=== PATIENT | female | born 1950 | race Caucasian/White ===

== ENCOUNTER 2017-11-20 07:58 | Inpatient (IN) | payer MEDICARE, MEDICAID ==
[~2017-11-20] VITALS: Ht 157.5 cm; Wt 90.9 kg
[~2017-11-20 07:58] MED LIST: ASPI-1 PO; B12 PO; BACL10TA PO; CALC-1197 PO; CLON-527 PO; DULO-31 PO; GABA600T2 PO; MULT-920 PO; PER10325T PO; SERT50TA PO; TERI2.4P SUBCUT; TRAZ-219 PO; VITAMIN B PO
[2017-11-20] MEDS ORDERED: ondansetron/PF 4mg/2ml inj IV ONE ×2 (08:05→08:40)
[2017-11-20] MEDS ORDERED: normal saline 1000ML IV soln IVB ONE ×2 (08:05→08:40)
[2017-11-20 08:21] LABS: BASOPHILS % (AUTO) 0.4 % (0-1); EOSINOPHILS # (AUTO) 0.1 X10'3 (0-0.9); EOSINOPHILS % (AUTO) 1.2 % (0-6); HEMATOCRIT 39.8 % (35.0-45.0); HEMOGLOBIN 13.7 g/dl (12.0-16.0); LYMPHOCYTES # (AUTO) 1.2 X10'3 (1.1-4.8); LYMPHOCYTES % (AUTO) 11.8 % (21-51); MEAN CORPUSCULAR HEMOGLOBIN 30.8 PG (27.0-31.0); MEAN CORPUSCULAR HGB CONC 34.5 % (33.0-36.5); MEAN CORPUSCULAR VOLUME 89.3 FL (78-98); MEAN PLATELET VOLUME 9.5 FL (7.4-10.4); MONOCYTES # (AUTO) 0.6 X10'3 (0-0.9); MONOCYTES % (AUTO) 6.1 % (2-12); NEUTROPHILS # (AUTO) 8.3 X10'3 (1.8-7.7); NEUTROPHILS % (AUTO) 80.5 % (42-75); PLATELET COUNT 141 X10'3 (140-440); RED BLOOD COUNT 4.46 X10'6 (4.20-5.60); RED CELL DISTRIBUTION WIDTH 13.5 % (11.5-14.5); WHITE BLOOD COUNT 10.3 X10'3 (4.5-11.0)
[2017-11-20 08:44] LABS: ALANINE AMINOTRANSFERASE 28 U/L (12-78); ALBUMIN 3.5 G/DL (3.4-5.0); ALBUMIN/GLOBULIN RATIO 1.1 (1.1-1.5); ALKALINE PHOSPHATASE 80 IU/L (46-116); ANION GAP 7 (8-16); ASPARTATE AMINO TRANSFERASE 22 U/L (10-37); BILIRUBIN,TOTAL 0.3 MG/DL (0.1-1.0); BLOOD UREA NITROGEN 14 MG/DL (7-18); BUN/CREATININE RATIO 12.8 (6.6-38.0); CHLORIDE 104 MMOL/L (99-107); CREATININE 1.09 MG/DL (0.40-0.90); GLUCOSE 105 MG/DL (70-104); LIPASE 94 U/L (73-393); SODIUM 139 MMOL/L (135-145); TOTAL CARBON DIOXIDE 27.8 MMOL/L (24-32); TOTAL PROTEIN 6.7 G/DL (6.4-8.2); eGFR 50 ML/MIN
[2017-11-20 08:46] LABS: CLARITY,URINE SLIGHTLY CLOUDY (Clear); COLOR,URINE YELLOW (Yellow); GLUCOSE, URINE NEGATIVE (Neg); KETONES,URINE NEGATIVE (Neg); LEUKOCYTE ESTERASE ,URINE SMALL (Neg); NITRITES, URINE NEGATIVE (Neg); OCCULT BLOOD,URINE LARGE (Neg); PROTEIN,URINE TRACE mg/dl (Neg)
[2017-11-20 08:47] LABS: UA COLLECTION TYPE OTHER
[2017-11-20 08:56] LABS: BACTERIA,URINE 1+ /HPF (Neg); MUCUS STRANDS MODERATE /LPF (Neg); RBC,URINE 50-100 /HPF (0-2); SQUAMOUS EPITHELIAL CELL,UR MODERATE /LPF (FEW)
[2017-11-20] MEDS ORDERED: FLO0.4C PO (08:56)
[2017-11-20] MEDS ORDERED: DIPH25CA6 PO (08:56)
[2017-11-20] MEDS ORDERED: CefTRIAXone 2gm/D5W 50ml 50 ML IV ONE (09:40)
[2017-11-20] MEDS ORDERED: ketorolac tromethamine 15mg/ml inj. IV PRN (11:15)
[2017-11-20] MEDS ORDERED: ondansetron/PF 4mg/2ml inj IV PRN (11:15)
[2017-11-20] MEDS ORDERED: HYDROmorphone 1 mg/ml syringe IV PRN (11:15)
[2017-11-20] MEDS ORDERED: acetaminophen 325mg tablet PO PRN (11:15)
[2017-11-20] MEDS ORDERED: magnesium hydroxide 30ml (MOM) UD suspension PO PRN (11:15)
[2017-11-20] MEDS ORDERED: mag hydrox/Alum hydrox/simeth 30ml oral suspension PO PRN (11:15)
[2017-11-20] MEDS: morphine 4 MG/ML inj SYRINge IV PRN ×2 (11:20→12:21)
[2017-11-20] MEDS: normal saline 1000ml 1,000 ML IV SCH ×3 (12:12→22:24)
[2017-11-20 15:50] VITALS: BP 107/72
[2017-11-20] MEDS: HYDROmorphone 1 mg/ml syringe IV PRN ×2 (17:55→22:24)
[2017-11-20 20:00] VITALS: BP 140/74
[2017-11-21] VITALS: BP 113/56
[2017-11-21] MEDS: HYDROmorphone 1 mg/ml syringe IV PRN ×2 (03:21→08:02)
[2017-11-21 05:24] LABS: BASOPHILS % (AUTO) 0.6 % (0-1); EOSINOPHILS # (AUTO) 0.3 X10'3 (0-0.9); EOSINOPHILS % (AUTO) 4.1 % (0-6); HEMATOCRIT 34.8 % (35.0-45.0); LYMPHOCYTES # (AUTO) 1.8 X10'3 (1.1-4.8); LYMPHOCYTES % (AUTO) 26.1 % (21-51); MEAN CORPUSCULAR HEMOGLOBIN 31.1 PG (27.0-31.0); MEAN CORPUSCULAR HGB CONC 34.4 % (33.0-36.5); MEAN CORPUSCULAR VOLUME 90.4 FL (78-98); MEAN PLATELET VOLUME 9.9 FL (7.4-10.4); MONOCYTES # (AUTO) 0.6 X10'3 (0-0.9); MONOCYTES % (AUTO) 8.1 % (2-12); NEUTROPHILS # (AUTO) 4.2 X10'3 (1.8-7.7); NEUTROPHILS % (AUTO) 61.1 % (42-75); PLATELET COUNT 120 X10'3 (140-440); RED BLOOD COUNT 3.85 X10'6 (4.20-5.60); RED CELL DISTRIBUTION WIDTH 13.4 % (11.5-14.5); WHITE BLOOD COUNT 6.9 X10'3 (4.5-11.0)
[2017-11-21 05:52] LABS: ALBUMIN 3.3 G/DL (3.4-5.0); ANION GAP 10 (8-16); BLOOD UREA NITROGEN 13 MG/DL (7-18); CALCIUM 8.5 MG/DL (8.5-10.1); CHLORIDE 105 MMOL/L (99-107); CREATININE 0.81 MG/DL (0.40-0.90); GLUCOSE 90 MG/DL (70-104); POTASSIUM 3.8 MMOL/L (3.5-5.1); SODIUM 140 MMOL/L (135-145); TOTAL CARBON DIOXIDE 25.5 MMOL/L (24-32); eGFR 71 ML/MIN
[2017-11-21 07:17] VITALS: BP 137/63
[2017-11-21] MEDS ORDERED: cefTRIAXone 1g/NS 100ml IVPB 100 ML IV SCH (08:00)
[2017-11-21] MEDS: normal saline 1000ml 1,000 ML IV SCH (08:02)
[2017-11-21 08:17] VITALS: BP 137/63
[2017-11-21 11:30] VITALS: BP 118/70
[2017-11-21] MEDS ORDERED: gabapentin 300mg capsule PO SCH (13:00)
== END 2017-11-21 12:10 | disposition left against medical advice (07) | DRG 690 ==
LOC: ER 07:58 → ED HOLD 11:12 → SUR 3N 15:00
PROVIDERS: ADMIT Family Medicine; ATTEND Family Medicine
DX: N13.6 Pyonephrosis (principal); G62.9 Polyneuropathy, unspecified; G89.29 Other chronic pain; Z53.21 Procedure and treatment not carried out due to patient leaving prior to being seen by health care provider; Z59.0 Homelessness; Z90.11 Acquired absence of right breast and nipple; Z90.710 Acquired absence of both cervix and uterus; Z79.899 Other long term (current) drug therapy; Z88.6 Allergy status to analgesic agent; Z88.8 Allergy status to other drugs, medicaments and biological substances; Z88.1 Allergy status to other antibiotic agents; Z85.3 Personal history of malignant neoplasm of breast; Z87.442 Personal history of urinary calculi; Z87.891 Personal history of nicotine dependence
CPT/HCPCS: 36415; 71045; 74176; 80048; 80053; 81001; 83690; 85025; 87070; 87088; 93005; J0696; J1170; J1885; J2270; J2405; J7030

== ENCOUNTER 2018-05-26 14:53 | Emergency (ER) | payer MEDICARE, MEDICAID ==
[~2018-05-26] VITALS: Ht 157.5 cm; Wt 77.3 kg
[~2018-05-26 14:53] MED LIST changes: -ASPI-1 PO; -BACL10TA PO; -CALC-1197 PO; -CLON-527 PO; +DIPH25CA6 PO; -DULO-31 PO; +FLO0.4C PO; +GABA600T13 PO; -GABA600T2 PO; -PER10325T PO; -SERT50TA PO; -TERI2.4P SUBCUT
[2018-05-26] MEDS ORDERED: acetaminophen 325mg tablet PO ONE (17:15)
[2018-05-26] MEDS ORDERED: LORazepam 1 MG tablet PO ONE (17:15)
[2018-05-26 17:34] LABS: BASOPHILS % (AUTO) 0.5 % (0-1); EOSINOPHILS # (AUTO) 0.1 X10'3 (0-0.9); EOSINOPHILS % (AUTO) 1.5 % (0-6); HEMATOCRIT 41.8 % (35.0-45.0); HEMOGLOBIN 14.2 g/dl (12.0-16.0); LYMPHOCYTES # (AUTO) 1.4 X10'3 (1.1-4.8); LYMPHOCYTES % (AUTO) 19.3 % (21-51); MEAN CORPUSCULAR HEMOGLOBIN 30.9 PG (27.0-31.0); MEAN CORPUSCULAR VOLUME 90.9 FL (78-98); MEAN PLATELET VOLUME 9.1 FL (7.4-10.4); MONOCYTES # (AUTO) 0.5 X10'3 (0-0.9); MONOCYTES % (AUTO) 6.3 % (2-12); NEUTROPHILS # (AUTO) 5.4 X10'3 (1.8-7.7); NEUTROPHILS % (AUTO) 72.4 % (42-75); PLATELET COUNT 172 X10'3 (140-440); RED CELL DISTRIBUTION WIDTH 13.3 % (11.5-14.5); WHITE BLOOD COUNT 7.5 X10'3 (4.5-11.0)
[2018-05-26 17:47] LABS: COLOR,URINE YELLOW (Yellow); GLUCOSE, URINE NEGATIVE (Neg); KETONES,URINE NEGATIVE (Neg); LEUKOCYTE ESTERASE ,URINE SMALL (Neg); NITRITES, URINE NEGATIVE (Neg); OCCULT BLOOD,URINE MODERATE (Neg); PROTEIN,URINE NEGATIVE (Neg); UROBILINOGEN,URINE 0.2 E.U/dL (0.2-1.0)
[2018-05-26 17:51] LABS: ALANINE AMINOTRANSFERASE 22 U/L (12-78); ALBUMIN 3.9 G/DL (3.4-5.0); ALBUMIN/GLOBULIN RATIO 1.2 (1.1-1.5); ALKALINE PHOSPHATASE 101 IU/L (46-116); ANION GAP 11 (8-16); ASPARTATE AMINO TRANSFERASE 20 U/L (10-37); BILIRUBIN,TOTAL 0.5 MG/DL (0.1-1.0); BLOOD UREA NITROGEN 15 MG/DL (7-18); BUN/CREATININE RATIO 21.7 (6.6-38.0); CALCIUM 9.2 MG/DL (8.5-10.1); CHLORIDE 105 MMOL/L (99-107); CREATININE 0.69 MG/DL (0.40-0.90); GLUCOSE 91 MG/DL (70-104); SODIUM 142 MMOL/L (135-145); TOTAL CARBON DIOXIDE 26.2 MMOL/L (24-32); TOTAL PROTEIN 7.2 G/DL (6.4-8.2); eGFR 85 ML/MIN
[2018-05-26 17:51] LABS: CLARITY,URINE Slightly Cloudy (Clear); UA COLLECTION TYPE CLN CATCH MIDSTREAM
[2018-05-26 17:57] LABS: URINE AMPHETAMINE SCREEN NEGATIVE (Neg); URINE BARBITUATE SCREEN NEGATIVE (Neg); URINE BENZODIAZEPINES SCREEN NEGATIVE (Neg); URINE CANNABINOID SCREEN NEGATIVE (Neg); URINE COCAINE SCREEN NEGATIVE (Neg); URINE METHADONE SCREEN NEGATIVE (Neg); URINE OPIATE SCREEN NEGATIVE (Neg); URINE PHENCYCLIDINE SCREEN NEGATIVE (Neg)
[2018-05-26 17:58] LABS: ETHANOL < 0.010 GM/DL (0.0-0.010)
[2018-05-26 17:59] LABS: BACTERIA,URINE FEW /HPF (Neg); RBC,URINE 0-2 /HPF (0-2); SQUAMOUS EPITHELIAL CELL,UR FEW /LPF (FEW)
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
[2018-05-26] MEDS ORDERED: sulfamethoxazole/trimethoprim DS (800/160mg) tablet PO ONE (18:45)
[2018-05-26] MEDS ORDERED: sulfamethoxazole/trimethoprim DS (800/160mg) tablet PO SCH (18:45)
--- NOTE | 2018-05-26 18:56 | NUR ---
CONTACTED [facility]LE[facility]YCH TO INITIATE CONSULT.
--- NOTE | 2018-05-26 20:55 | NUR ---
TELEPSYCH DR RECOMMENDED THAT PT BE PLACED ON A HOLD, WILL FAX REPORT THROUGH.
--- NOTE | 2018-05-27 01:46 | NUR ---
PT LYING ON BACK WITH BLANKETS PULLED TO WAIST. EVEN, UNLABORED BREATHS. NO DISTRESS NOTED. WILL CONTINUE TO MONITOR PT.
--- NOTE | 2018-05-27 04:53 | NUR ---
PT LYING ON LEFT SIDE WITH BLANKETS PULLED TO SHOULDERS. EVEN, UNLABORED BREATHS. NO DISTRESS NOTED. WILL CONTINUE TO MONITOR.
[2018-05-27] MEDS ORDERED: HYDROcodone/acetaminophen 5mg/325mg tablet PO ONE (07:55)
--- NOTE | 2018-05-27 22:51 | NUR ---
pt resting, crying in her bed at this time, no new c/o, states continuing sadness over current situation
--- NOTE | 2018-05-28 01:12 | NUR ---
pt sleeping, no c/o
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
--- NOTE | 2018-05-28 09:24 | NUR ---
TELEPHONE CALL TO [id number] FOR COPY OF FAXED TELEPSYCH REPORT.
--- NOTE | 2018-05-28 14:00 | NUR ---
REPORT CALLED TO [facility] ON ER OVERFLOW UNIT. PATIENT PREPARED FOR TRANSFER TO OVERFLOW.
--- NOTE | 2018-05-28 14:10 | NUR ---
Pt walked over from ER main accompanied by tech and security, oriented to bed 27.
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
[2018-05-28] MEDS: sulfamethoxazole/trimethoprim DS (800/160mg) tablet PO SCH ×2 (15:02→20:44)
--- NOTE | 2018-05-28 16:00 | NUR ---
Provided pt with a warm blanket.
--- NOTE | 2018-05-28 17:38 | NUR ---
Pt lying in bed with eyes shut, appears to be sleeping.
--- NOTE | 2018-05-28 19:10 | NUR ---
Assumed care, patient resting in bed eating her dinner.
[2018-05-28] MEDS: gabapentin 300mg capsule PO SCH (20:44)
[2018-05-28] MEDS: diphenhydrAMINE 25mg capsule PO SCH (20:44)
[2018-05-28] MEDS: traZODone 150mg tablet PO SCH (20:46)
[2018-05-28] MEDS: tamsulosin 0.4mg capsule PO SCH (20:46)
--- NOTE | 2018-05-28 21:08 | NUR ---
Patient took HS medications without issue. She is currently laying in bed mumbling to herself about her daughter purposefully putting bedbugs somewhere. Patient encouraged to eat her dinner plate but she refused saying she was not hungry.
--- NOTE | 2018-05-28 23:00 | NUR ---
Patient lays in bed and mumbles to herself. She engages in conversation with television script writer but also keeps talking to herself. The phone rings on the unit and she is convinced that it is her grandchildren calling to "make me crazy." "They know what they are doing." She mumbles about her son and daughter and keeps stating that they are out to make her crazy. The phone rings again and she says, "See they keep doing it, they know what they are doing." She is tearful at times and appears paranoid, looking around and convincing herself. She states that she wants to . "I just want to get hit by a bus, I just want to ." She is cooperative with the physical assessment and denies any pain. She is medication compliant with her HS meds.
--- NOTE | 2018-05-29 01:00 | NUR ---
Patient is currently alseep in bed. No signs or symptoms of distress.
--- NOTE | 2018-05-29 03:00 | NUR ---
Patient is asleep in bed. No signs or symptoms of distress.
--- NOTE | 2018-05-29 05:00 | NUR ---
Patient is asleep in bed. No signs or symptoms of distress.
[2018-05-29] MEDS: multivitamins, therapeutics tablet PO SCH (08:31)
[2018-05-29] MEDS: gabapentin 300mg capsule PO SCH ×3 (08:31→20:36)
[2018-05-29] MEDS: cyanocobalamin 500mcg tablet PO SCH (08:31)
[2018-05-29] MEDS: sulfamethoxazole/trimethoprim DS (800/160mg) tablet PO SCH ×2 (08:31→20:37)
--- NOTE | 2018-05-29 14:45 | NUR ---
Gave report to Coby from [facility] for possible placement
--- NOTE | 2018-05-29 16:10 | NUR ---
Repoprt given to Laly from [facility] for possible placement
[2018-05-29] MEDS ORDERED: CLON0.5T12 PO (18:59)
[2018-05-29] MEDS ORDERED: DULO60CA64 PO (18:59)
[2018-05-29] MEDS ORDERED: PRAZ1CAP5 PO (18:59)
[2018-05-29] MEDS: tamsulosin 0.4mg capsule PO SCH (20:36)
[2018-05-29] MEDS: diphenhydrAMINE 25mg capsule PO SCH (20:37)
[2018-05-29] MEDS: lactobacillus rhamnosus 10,000 MMU CELLS/CAPSULE PO SCH (20:37)
[2018-05-29] MEDS: traZODone 150mg tablet PO SCH (20:37)
[2018-05-29] MEDS: prazosin 1mg capsule PO SCH (20:41)
--- NOTE | 2018-05-30 07:00 | NUR ---
Pt is resting quietly in bed at this time. No signs of distress noted.
[2018-05-30] MEDS: multivitamins, therapeutics tablet PO SCH (07:59)
[2018-05-30] MEDS: cyanocobalamin 500mcg tablet PO SCH (07:59)
[2018-05-30] MEDS: sulfamethoxazole/trimethoprim DS (800/160mg) tablet PO SCH ×2 (07:59→21:09)
[2018-05-30] MEDS: lactobacillus rhamnosus 10,000 MMU CELLS/CAPSULE PO SCH ×2 (07:59→21:09)
[2018-05-30] MEDS: gabapentin 300mg capsule PO SCH ×3 (08:00→21:08)
[2018-05-30] MEDS: duloxetine 30mg CAPSULE.DR PO SCH (08:00)
--- NOTE | 2018-05-30 09:08 | NUR ---
Pt resting quietly in bed, on her back. Resp. even and unlabored. No signs of distress at this time.
--- NOTE | 2018-05-30 11:22 | NUR ---
Pt. in bed, resting quietly, laying on her left side. Resp are even and unlabored. Pt does not appear to be in any distress at this time.
[2018-05-30] MEDS ORDERED: HYDROcodone/acetaminophen 5mg/325mg tablet PO ONE (12:30)
--- NOTE | 2018-05-30 13:15 | NUR ---
Pt stated she had a migraine. notified and new orders obtained. Pt given [place] as ordered. Pt stated she was not very hungry and ate only a small part of her meal. Pt did say that the [place] did improve her head pain. She also expressed that earlier she thought she heard her son's voice saying "mom" and got up to see if he was here. Her son lives in [place]. She was upset that she was hearing voices.
[2018-05-30] MEDS: clonazePAM 1mg tablet PO PRN (16:22)
--- NOTE | 2018-05-30 16:30 | NUR ---
Per [facility], pt has some increased anxiety. Pt given meds as ordered. She is laying in bed and states that she feels like she can't relax. Will cont. to monitor.
--- NOTE | 2018-05-30 17:58 | NUR ---
Pt handed staff some notes with her children's phone numbers on them. Asked pt if she would like to call them but stated she wanted staff to call. [employer] Sequestration [employer] Operator attempted to contact her son Joey but there was not answer.
--- NOTE | 2018-05-30 19:02 | NUR ---
Patient sitting in bed and eating dinner. Patient appears disorganized moving around her food items and other items on her bedside table. Patient states she is depressed and feels hopeless. Patient at times was saying things that didn't make sense. Patient said in a round about way that she has no family who cares and nothing to lived for.
[2018-05-30] MEDS: traZODone 150mg tablet PO SCH (21:08)
[2018-05-30] MEDS: tamsulosin 0.4mg capsule PO SCH (21:08)
[2018-05-30] MEDS: prazosin 1mg capsule PO SCH (21:08)
[2018-05-30] MEDS: diphenhydrAMINE 25mg capsule PO SCH (21:09)
--- NOTE | 2018-05-30 21:16 | NUR ---
Patient awake and laying supine in bed. No distress observed. Continue to monitor.
--- NOTE | 2018-05-30 23:46 | NUR ---
Patient sleeping supine. No distress observed. Continue to monitor.
--- NOTE | 2018-05-31 05:38 | NUR ---
Pt has been sleeping quietly since 0200, but for one trip to the restroom approx 0430.
--- NOTE | 2018-05-31 06:33 | NUR ---
Appears to be sleeping; RR WNL's
[2018-05-31] MEDS: duloxetine 30mg CAPSULE.DR PO SCH (08:07)
[2018-05-31] MEDS: multivitamins, therapeutics tablet PO SCH (08:07)
[2018-05-31] MEDS: cyanocobalamin 500mcg tablet PO SCH (08:07)
[2018-05-31] MEDS: lactobacillus rhamnosus 10,000 MMU CELLS/CAPSULE PO SCH ×2 (08:07→20:30)
[2018-05-31] MEDS: gabapentin 300mg capsule PO SCH ×3 (08:07→20:31)
[2018-05-31] MEDS: sulfamethoxazole/trimethoprim DS (800/160mg) tablet PO SCH ×2 (08:07→20:31)
[2018-05-31] MEDS: clonazePAM 1mg tablet PO PRN (08:07)
--- NOTE | 2018-05-31 08:20 | NUR ---
Pt up for breakfast ate her meal took her medications and went back to sleep. Pt complains of some pain in her back; meds offered and suggest change of position.
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
--- NOTE | 2018-05-31 12:00 | NUR ---
Pt sitting on her bed waiting for lunch. Pt talked about her son and now being homeless. She engages in conversation well. Appears depressed and has been crying on and off.
--- NOTE | 2018-05-31 14:21 | NUR ---
Pt transferred to bed #20 she is laying on her side with her eyes closed. RR WNL's.
--- NOTE | 2018-05-31 15:01 | NUR ---
[facility] REPORT The written report was faxed to [phone]. Verbal report given to Luiza. Per Luiza, "no case number until the case is assigned."
--- NOTE | 2018-05-31 15:24 | NUR ---
Sleeping right side normal RR even and unlabored.
--- NOTE | 2018-05-31 17:22 | NUR ---
Pt has been sleeping on her bed she is now awake and waiting quietly on her bed for dinner.
[2018-05-31] MEDS: diphenhydrAMINE 25mg capsule PO SCH (20:30)
[2018-05-31] MEDS: prazosin 1mg capsule PO SCH (20:30)
[2018-05-31] MEDS: tamsulosin 0.4mg capsule PO SCH (20:31)
[2018-05-31] MEDS: traZODone 150mg tablet PO SCH (20:31)
[2018-06-01] MEDS ORDERED: acetaminophen 325mg tablet PO ONE (03:40)
[2018-06-01] MEDS: sulfamethoxazole/trimethoprim DS (800/160mg) tablet PO SCH ×2 (07:24→21:09)
[2018-06-01] MEDS: duloxetine 30mg CAPSULE.DR PO SCH (07:25)
[2018-06-01] MEDS: gabapentin 300mg capsule PO SCH ×3 (07:25→21:11)
[2018-06-01] MEDS: lactobacillus rhamnosus 10,000 MMU CELLS/CAPSULE PO SCH ×2 (07:25→21:09)
[2018-06-01] MEDS: multivitamins, therapeutics tablet PO SCH (07:25)
[2018-06-01] MEDS: cyanocobalamin 500mcg tablet PO SCH (07:25)
[2018-06-01] MEDS: clonazePAM 1mg tablet PO PRN (13:23)
--- NOTE | 2018-06-01 17:15 | NUR ---
pt is in bed supine, breathing equal and unlabored, she appears to be asleep. no s/s of distress observed
[2018-06-01] MEDS: diphenhydrAMINE 25mg capsule PO SCH (21:09)
[2018-06-01] MEDS: traZODone 150mg tablet PO SCH (21:10)
[2018-06-01] MEDS: prazosin 1mg capsule PO SCH (21:13)
--- NOTE | 2018-06-02 00:45 | NUR ---
pt resting comfortably on her back. no signs of distress noted. will continue to monitor.
[2018-06-02] MEDS: lactobacillus rhamnosus 10,000 MMU CELLS/CAPSULE PO SCH ×2 (07:45→20:48)
[2018-06-02] MEDS: cyanocobalamin 500mcg tablet PO SCH (07:45)
[2018-06-02] MEDS: multivitamins, therapeutics tablet PO SCH (07:45)
[2018-06-02] MEDS: sulfamethoxazole/trimethoprim DS (800/160mg) tablet PO SCH ×2 (07:45→20:47)
[2018-06-02] MEDS: duloxetine 30mg CAPSULE.DR PO SCH (07:45)
[2018-06-02] MEDS: gabapentin 300mg capsule PO SCH ×3 (07:46→20:48)
[2018-06-02] MEDS: clonazePAM 1mg tablet PO PRN (11:42)
--- NOTE | 2018-06-02 13:20 | NUR ---
Pt seen by [facility] worker Bhavani. Pt remains on a hold
--- NOTE | 2018-06-02 13:48 | NUR ---
Dr. Pinto at bedside talking with pt.
--- NOTE | 2018-06-02 14:33 | NUR ---
Anneliese spoke to Ho from [facility] and he is aware pt is here and has been looking for housing for pt for 2 weeks now. He will continue looking for housing options. Dr Pinto interested in working with [facility] for housing and is updated on this information.
--- NOTE | 2018-06-02 20:30 | NUR ---
PATIENT WITH A FLAT AFFECT, APPEARS WITHDRAWN AND FEARFUL. DENIES SI AND HI AT HIS TIME
[2018-06-02] MEDS: diphenhydrAMINE 25mg capsule PO SCH (20:48)
[2018-06-02] MEDS: traZODone 150mg tablet PO SCH (20:48)
[2018-06-02 20:58] VITALS: BP 94/58
[2018-06-02] MEDS: prazosin 1mg capsule PO SCH (21:00)
--- NOTE | 2018-06-02 22:19 | NUR ---
PATIENT TO BEHAVIORAL HEALTH VIA WC WITH TECH FROM BEHAVIORAL HEALTH. REPORT CALLED TO CHERELLE SHAIKH
[2018-06-10] MEDS ORDERED: GABA600T13 PO (12:29)
[2018-06-10] MEDS ORDERED: DULO30CA51 PO (12:29)
[2018-06-10] MEDS ORDERED: FLO0.4C PO (12:29)
[2018-06-10] MEDS ORDERED: TRAZ-219 PO (12:29)
[2018-06-10] MEDS ORDERED: PRAZ1CAP5 PO (12:29)
== END 2018-06-02 22:30 ==
LOC: EEVIPCON 14:53 → ER 14:53
DX: R45.851 Suicidal ideations (principal); F32.9 Major depressive disorder, single episode, unspecified; N39.0 Urinary tract infection, site not specified; R51 Headache; G89.29 Other chronic pain; Z59.0 Homelessness; Z88.8 Allergy status to other drugs, medicaments and biological substances; Z88.1 Allergy status to other antibiotic agents; Z88.6 Allergy status to analgesic agent; Z79.899 Other long term (current) drug therapy; Z87.440 Personal history of urinary (tract) infections
CPT/HCPCS: 36415; 80053; 80305; 80320; 81001; 84443; 85025; 99285; Q0163

== ENCOUNTER 2018-06-02 20:25 | Inpatient (IN) | payer MEDICARE, MEDICAID | END 2018-06-09 13:50 | disposition short-term general hospital (02) | LOC: ED HOLD 20:25 → ADULT MH 21:58 | DX: R45.851 Suicidal ideations (principal); F32.3 Major depressive disorder, single episode, severe with psychotic features; F43.10 Post-traumatic stress disorder, unspecified; F17.210 Nicotine dependence, cigarettes, uncomplicated ==

== ENCOUNTER 2018-06-09 14:10 | Day surgery (SDC) | payer MEDICARE, MEDICAID ==
[~2018-06-09 14:10] MED LIST changes: +CLON0.5T12 PO; +DULO60CA64 PO; +PRAZ1CAP5 PO; +iohexol 300 MG/1 ML 50ml polymer ONE; +meperidine/PF 25mg/ml syringe IV PRN; +morphine 4 MG/ML inj SYRINge IV PRN; +ondansetron/PF 4mg/2ml inj IV PRN; +proCHLORperazine 10 MG/2 ml inj IV PRN; +ringers solution, lacted 1,000 ML IV SCH
[2018-06-09] MEDS ORDERED: sevoflurane 250ml liquid IH ONE (14:15)
[2018-06-09] MEDS ORDERED: midazolam 2 mg/2 ml injection ONE (14:23)
[2018-06-09] MEDS ORDERED: fentaNYL/PF 50MCG/1 ML 2ML syringe ONE (14:23)
[2018-06-09] MEDS ORDERED: propofol inj 20 ML IV ONE (14:31)
[2018-06-09] MEDS ORDERED: LIDOcaine 1%/PF 5ML 10 MG/ML VIAL ONE (14:31)
[2018-06-09 15:05] VITALS: BP 139/72
--- NOTE | 2018-06-09 15:05 | NUR ---
Received from OR via bed, accompanied by Anesthesiologist. Report received. Initial physical assessment done and recorded.
[2018-06-09 15:15] VITALS: BP 135/89
--- NOTE | 2018-06-09 15:20 | NUR ---
SPOKE WITH DR WALKER BRYSON TO TRANSFER BACK TO BEHAVIORAL HEALTH.
[2018-06-09 15:25] VITALS: BP 134/88
--- NOTE | 2018-06-09 15:29 | NUR ---
PT TO BE DISCHARGED TO BEHAVIORAL HEALTH, DR THORPE AWARE THAT PT IS NOT GOING TO MEDICAL, AND IS RETURNING TO BEHAVIORAL HEALTH.
--- NOTE | 2018-06-09 15:30 | NUR ---
Discharge criteria met, report to receiving floor. Transferred to room in stable condition.
[2018-06-10] MEDS ORDERED: FLO0.4C PO (12:29)
[2018-06-10] MEDS ORDERED: DULO30CA51 PO (12:29)
[2018-06-10] MEDS ORDERED: TRAZ-219 PO (12:29)
[2018-06-10] MEDS ORDERED: PRAZ1CAP5 PO (12:29)
[2018-06-10] MEDS ORDERED: GABA600T13 PO (12:29)
== END 2018-06-09 15:30 | disposition short-term general hospital (02) ==
LOC: PAS 14:10
PROVIDERS: ATTEND Urology
DX: N20.0 Calculus of kidney (principal); Z88.8 Allergy status to other drugs, medicaments and biological substances; E66.9 Obesity, unspecified; F43.10 Post-traumatic stress disorder, unspecified; Z79.899 Other long term (current) drug therapy
CPT/HCPCS: 52332; 76000; C2617; J2001; J2250; J2704; J3010; J7030; Q9967; A4402; C1758; C1769; J7120

== ENCOUNTER 2018-06-09 16:20 | Inpatient (IN) | payer MEDICARE, MEDICAID | END 2018-06-10 14:02 | disposition still patient (30) | LOC: ADULT MH 16:20 | DX: R45.851 Suicidal ideations (principal); F32.3 Major depressive disorder, single episode, severe with psychotic features; F43.10 Post-traumatic stress disorder, unspecified ==

== ENCOUNTER 2018-11-19 07:30 | Inpatient (IN) | payer MEDICARE, MEDICAID ==
[2018-11-19] VITALS (20 sets, daily range): BP systolic 99–165; BP diastolic 53–102
[~2018-11-19] VITALS: Ht 160 cm; Wt 87.0 kg
[~2018-11-19 07:30] MED LIST changes: +ACET-2119 PO; -B12 PO; +BISA10SU60 RC; +CLON-527 PO; -CLON0.5T12 PO; -DIPH25CA6 PO; +DULO-31 PO; -DULO60CA64 PO; -FLO0.4C PO; +HYDR-4353 PO; +MAGN400C PO; +MAGN400O6 PO; +MORP20CA20 PO; -MULT-920 PO; +NA P133E4 RC; +NAPR-1154 PO; -PRAZ1CAP5 PO; +PRAZ5CAP PO; +SENN-162 PO; -TRAZ-219 PO; +TRAZ-251 PO; +VITA1TAB20 PO; -VITAMIN B PO; -iohexol 300 MG/1 ML 50ml polymer ONE; -meperidine/PF 25mg/ml syringe IV PRN; -morphine 4 MG/ML inj SYRINge IV PRN; -ondansetron/PF 4mg/2ml inj IV PRN; -proCHLORperazine 10 MG/2 ml inj IV PRN; -ringers solution, lacted 1,000 ML IV SCH
[2018-11-19] MEDS ORDERED: famotidine 20mg tablet PO ONE (09:45)
[2018-11-19] MEDS ORDERED: VANCOMYCIN INJ 1000 MG in NORMAL SALINE 250ml IV.SOLN IV ONE (09:45)
[2018-11-19] MEDS ORDERED: ringers solution, lacted 1,000 ML IV SCH ×2 (09:45→11:44)
[2018-11-19] MEDS ORDERED: cefazolin/dext.iso 2gm/100 ML IV ONE (09:45)
[2018-11-19] MEDS ORDERED: tranexamic acid inj. 850 MG in normal saline 100ml IV soln 100 ML IV ONE ×2 (09:45→14:00)
[2018-11-19 10:24] LABS: HEMOGLOBIN 11.1 g/dl (12.0-16.0); LYMPHOCYTES # (AUTO) 2.4 X10'3 (1.1-4.8); MEAN CORPUSCULAR HGB CONC 33.7 g/dL (33.0-36.5); MEAN PLATELET VOLUME 8.3 FL (7.4-10.4); WHITE BLOOD COUNT 7.1 X10'3 (4.5-11.0)
[2018-11-19 10:26] LABS: BASOPHILS # (AUTO) 0.1 X10'3 (0-0.2); BASOPHILS % (AUTO) 1.1 % (0-1); LYMPHOCYTES % (AUTO) 33.9 % (21-51); MEAN CORPUSCULAR HEMOGLOBIN 27.7 PG (27.0-31.0); MEAN CORPUSCULAR VOLUME 82.3 FL (78-98); MONOCYTES # (AUTO) 0.6 X10'3 (0-0.9); MONOCYTES % (AUTO) 9.1 % (2-12); NEUTROPHILS % (AUTO) 41.9 % (42-75); PLATELET COUNT 206 X10'3 (140-440); RED BLOOD COUNT 4.01 X10'6 (4.20-5.60); RED CELL DISTRIBUTION WIDTH 16.1 % (11.5-14.5)
[2018-11-19] MEDS ORDERED: ketorolac trometh. 30mg/ml inj. ONE (10:28)
[2018-11-19] MEDS ORDERED: ROPIVAcaine 0.5% (5mg/ml) 30ml vial ONE ×2 (10:29→14:47)
[2018-11-19 10:36] LABS: ALANINE AMINOTRANSFERASE 19 U/L (12-78); ALBUMIN 3.1 G/DL (3.4-5.0); ALBUMIN/GLOBULIN RATIO 0.9 (1.1-1.5); ALKALINE PHOSPHATASE 73 IU/L (46-116); ANION GAP 4 (8-16); ASPARTATE AMINO TRANSFERASE 15 U/L (10-37); BILIRUBIN,TOTAL 0.4 MG/DL (0.1-1.0); BLOOD UREA NITROGEN 22 MG/DL (7-18); BUN/CREATININE RATIO 28.2 (6.6-38.0); CALCIUM 8.6 MG/DL (8.5-10.1); CHLORIDE 108 MMOL/L (99-107); CREATININE 0.78 MG/DL (0.40-0.90); GLUCOSE 80 MG/DL (70-104); POTASSIUM 4.4 MMOL/L (3.5-5.1); SODIUM 140 MMOL/L (135-145); TOTAL CARBON DIOXIDE 27.7 MMOL/L (24-32); TOTAL PROTEIN 6.4 G/DL (6.4-8.2); eGFR 74 ML/MIN
[2018-11-19] MEDS ORDERED: sevoflurane 250ml liquid IH ONE (11:10)
[2018-11-19] MEDS ORDERED: midazolam 2 mg/2 ml injection ONE (11:16)
[2018-11-19] MEDS ORDERED: fentaNYL /PF 50mcg/ml 5ml ampule ONE (11:17)
[2018-11-19] MEDS ORDERED: propofol inj 20 ML IV ONE (11:37)
[2018-11-19] MEDS ORDERED: LIDOcaine 2% (20mg/ml) 5ml vial ONE (11:37)
[2018-11-19] MEDS ORDERED: rocuronium 10mg/ml inj IV ONE (11:37)
[2018-11-19] MEDS ORDERED: ROPIVAcaine 0.2%/PF PAIN PUMP 550 ML IJ SCH (11:44)
[2018-11-19] MEDS ORDERED: meperidine/PF 25mg/ml syringe IV PRN ×2 (11:45)
[2018-11-19] MEDS ORDERED: proCHLORperazine 10 MG/2 ml inj IV PRN (11:45)
[2018-11-19] MEDS ORDERED: morphine 4 MG/ML inj SYRINge IV PRN ×2 (11:45)
[2018-11-19] MEDS ORDERED: ondansetron/PF 4mg/2ml inj IV PRN ×2 (11:45→14:25)
[2018-11-19] MEDS ORDERED: ePHEDrine 50MG/ML INJ. ONE (12:50)
[2018-11-19] MEDS ORDERED: glycopyrrolate 0.2mg/ml inj ONE (12:51)
[2018-11-19] MEDS ORDERED: dexamethasone sod phosphate 4mg/ml inj. ONE (12:51)
[2018-11-19] MEDS ORDERED: neostigmine methylsulfate 1 MG/ML 10ml vial ONE (12:51)
[2018-11-19] MEDS ORDERED: ondansetron/PF 4mg/2ml inj ONE (12:51)
[2018-11-19 13:16] LABS: APPEARANCE,SYNOVIAL FLUID HAZY; COLOR,SYNOVIAL FLUID YELLOW; SYN RBC 1725 /CU MM (0)
[2018-11-19 13:17] LABS: SYN WBC 76 /CU MM (0-200)
[2018-11-19] MEDS ORDERED: HYDROmorphone inj. 0.5 MG/0.5 ML DISP.SYRIN IV PRN (14:25)
[2018-11-19] MEDS ORDERED: non-formulary drug (Na Phos,M-B/Na Phos,Di-Ba* (Fleet's Enema*) 1 BOTTLE) RC PRN (14:25)
[2018-11-19] MEDS ORDERED: acetaminophen 325mg tablet PO PRN (14:25)
[2018-11-19] MEDS ORDERED: diphenhydrAMINE 25mg capsule PO PRN ×2 (14:25)
[2018-11-19] MEDS ORDERED: magnesium hydroxide 30ml (MOM) UD suspension PO PRN ×2 (14:25)
[2018-11-19] MEDS ORDERED: bisacodyl 10mg suppository rectal RC PRN (14:25)
[2018-11-19] MEDS ORDERED: oxyCODONE IR 5mg (immed. release) tablet PO PRN (14:25)
--- NOTE | 2018-11-19 14:25 | NUR ---
Received from OR via BED , accompanied by Anesthesiologist DR COATS and report given by Anesthesiolgist. PATIENT WAKING UP, DENIES PAIN, V/S WNL, NEUROVASCULAR CHECKS INTACT, 20G PIV LUE , UMBERTO DRESSING TO RIGHT KNEE CDI W/ COLD POWDER PACK AND ON QUE BALL W/ SCD ON. F/C DRAINING CLEAR YELLOW URINE.
[2018-11-19] MEDS: meperidine/PF 25mg/ml syringe IV PRN ×4 (14:48→15:41)
--- NOTE | 2018-11-19 15:05 | NUR ---
I have received patient report from Loi SHAIKH in recovery
[2018-11-19] MEDS ORDERED: acetaminophen 1,000mg/100ml IV 100 ML IV ONE (15:20)
--- NOTE | 2018-11-19 15:45 | NUR ---
PATIENT A&OX4, DENIES PAIN, V/S WNL, NEUROVASCULAR CHECKS INTACT, 20G PIV LUE , DRESSING TO RIGHT KNEE UMBERTO CDI W/ COLD POWDER PACK AND AN ON QUE BALL W/ SCD ON. F/C DRAINING CLEAR YELLOW URINE. PATIENT TAKEN TO 4013A WITH ALL BELONGINGS AND HOOKED UP TO MONITORS IN ROOM AND REPORT GIVEN TO DIRECTOR SALES WHO HAS TAKEN OVER PATIENT CARE.
[2018-11-19] MEDS: ceFAZolin 1GM/D5W- ADD-VANTAGE 50 ML IV SCH ×2 (16:12→23:43)
[2018-11-19] MEDS: gabapentin 300mg capsule PO SCH ×2 (16:14→23:43)
[2018-11-19] MEDS: potassium cl 20mEq in 1/2 NS 1,000 ML IV SCH ×2 (16:14→22:22)
[2018-11-19 17:28] LABS: HEMATOCRIT 34.7 % (35.0-45.0); HEMOGLOBIN 11.5 g/dl (12.0-16.0); MEAN CORPUSCULAR HEMOGLOBIN 27.6 PG (27.0-31.0); MEAN CORPUSCULAR VOLUME 83.6 FL (78-98); PLATELET COUNT 192 X10'3 (140-440); RED BLOOD COUNT 4.14 X10'6 (4.20-5.60); RED CELL DISTRIBUTION WIDTH 15.8 % (11.5-14.5); WHITE BLOOD COUNT 10.8 X10'3 (4.5-11.0)
[2018-11-19] MEDS ORDERED: tranexamic acid inj. 870 MG in normal saline 100ml IV soln 100 ML IV ONE (17:30)
[2018-11-19] MEDS: oxyCODONE IR 5mg (immed. release) tablet PO PRN ×2 (17:33→21:50)
--- NOTE | 2018-11-19 18:10 | NUR ---
Patient report given to Moshe SHAIKH
--- NOTE | 2018-11-19 18:49 | NUR ---
Patient in room ORTHO 4013. I have received report from kvng SHAIKH and had the opportunity to ask questions and assume patient care.
[2018-11-19] MEDS: acetaminophen 325mg tablet PO SCH (19:34)
[2018-11-19] MEDS: clonazePAM 0.5mg tablet PO SCH (19:34)
[2018-11-19] MEDS: magnesium oxide 400mg tablet PO SCH (19:34)
[2018-11-19] MEDS ORDERED: acetaminophen 1,000mg/100ml IV 100 ML IV SCH (20:00)
[2018-11-19] MEDS ORDERED: vancomycin/NS 1 GM ADD-VANTAGE 250 ML IV SCH (20:00)
[2018-11-19] MEDS: sennosides 8.6mg tablet PO SCH (20:13)
[2018-11-19] MEDS: traZODone 50mg tablet PO SCH (20:14)
--- NOTE | 2018-11-19 23:25 | NUR ---
patient having a lot of pain on Q increased to 10ml/hr
[2018-11-20] MEDS: oxyCODONE IR 5mg (immed. release) tablet PO PRN ×6 (01:31→22:57)
[2018-11-20] MEDS: acetaminophen 325mg tablet PO SCH ×4 (01:36→20:08)
[2018-11-20 01:58] VITALS: BP 130/67
--- NOTE | 2018-11-20 02:00 | NUR ---
Gave patient scheduled Tylenol and alert came up that it was over the recommended 4000 mg, i reviewed emar and only 1650mg had been given. Pharmacy was messaged and made aware, will continue to monitor
[2018-11-20] MEDS: HYDROmorphone 1 mg/ml syringe IV PRN ×4 (02:36→20:46)
[2018-11-20] MEDS: potassium cl 20mEq in 1/2 NS 1,000 ML IV SCH ×3 (03:43→22:22)
--- NOTE | 2018-11-20 06:27 | NUR ---
Problems reprioritized. Patient report given, questions answered & plan of care reviewed with Renetta SHAIKH.
[2018-11-20 06:34] VITALS: BP 100/49
--- NOTE | 2018-11-20 06:35 | NUR ---
Patient in room ORTHO 4013. I have received report from Ortiz SHAIKH and had the opportunity to ask questions and assume patient care.
[2018-11-20] MEDS: gabapentin 300mg capsule PO SCH ×2 (07:18→15:48)
[2018-11-20] MEDS: magnesium oxide 400mg tablet PO SCH ×2 (07:19→20:07)
[2018-11-20] MEDS: duloxetine 30mg CAPSULE.DR PO SCH (07:19)
[2018-11-20] MEDS: clonazePAM 0.5mg tablet PO SCH ×2 (07:19→20:07)
[2018-11-20] MEDS: vitamin B comp w/Vit. C tab 1 TAB TABLET PO SCH (07:19)
[2018-11-20] MEDS: prazosin 1mg capsule PO SCH ×3 (07:20→20:27)
[2018-11-20] MEDS: sennosides 8.6mg tablet PO SCH ×2 (07:20→20:08)
[2018-11-20 07:24] LABS: BASOPHILS % (AUTO) 0.3 % (0-1); EOSINOPHILS % (AUTO) 0.4 % (0-6); LYMPHOCYTES # (AUTO) 1.9 X10'3 (1.1-4.8); LYMPHOCYTES % (AUTO) 17.1 % (21-51); MEAN CORPUSCULAR HEMOGLOBIN 27.9 PG (27.0-31.0); MEAN CORPUSCULAR HGB CONC 33.4 g/dL (33.0-36.5); MEAN CORPUSCULAR VOLUME 83.4 FL (78-98); MEAN PLATELET VOLUME 8.5 FL (7.4-10.4); MONOCYTES % (AUTO) 8.4 % (2-12); NEUTROPHILS # (AUTO) 8.3 X10'3 (1.8-7.7); NEUTROPHILS % (AUTO) 73.8 % (42-75); PLATELET COUNT 206 X10'3 (140-440); RED BLOOD COUNT 3.23 X10'6 (4.20-5.60); RED CELL DISTRIBUTION WIDTH 15.7 % (11.5-14.5); WHITE BLOOD COUNT 11.3 X10'3 (4.5-11.0)
[2018-11-20 07:32] LABS: ANION GAP 5 (8-16); CHLORIDE 105 MMOL/L (99-107); POTASSIUM 4.6 MMOL/L (3.5-5.1); SODIUM 136 MMOL/L (135-145); TOTAL CARBON DIOXIDE 25.8 MMOL/L (24-32)
[2018-11-20] MEDS: aspirin 325mg tablet PO SCH (08:37)
[2018-11-20 10:00] VITALS: BP 119/62
[2018-11-20 16:52] VITALS: BP 126/69
[2018-11-20 17:00] VITALS: BP 132/81
--- NOTE | 2018-11-20 18:15 | NUR ---
Patient in room ORTHO 4013. I have received report from Wagner SHAIKH with Theodora SHAIKH and had the opportunity to ask questions and assume patient care.
--- NOTE | 2018-11-20 18:16 | NUR ---
Problems reprioritized. Patient report given, questions answered & plan of care reviewed with Lin SHAIKH.
[2018-11-20] MEDS ORDERED: celeCOXIB 100mg capsule PO SCH (20:00)
[2018-11-20] MEDS: traZODone 50mg tablet PO SCH (20:08)
[2018-11-20 21:00] VITALS: BP 139/79
[2018-11-21] MEDS: acetaminophen 325mg tablet PO SCH ×3 (01:08→15:05)
[2018-11-21] MEDS: gabapentin 300mg capsule PO SCH ×4 (01:08→23:05)
[2018-11-21] MEDS: HYDROmorphone 1 mg/ml syringe IV PRN ×4 (01:08→20:29)
[2018-11-21 01:20] VITALS: BP 123/58
[2018-11-21] MEDS: oxyCODONE IR 5mg (immed. release) tablet PO PRN ×3 (03:52→17:01)
--- NOTE | 2018-11-21 06:25 | NUR ---
Problems reprioritized. Patient report given, questions answered & plan of care reviewed with Wagner RN with Theodora RN.
--- NOTE | 2018-11-21 06:36 | NUR ---
Patient in room ORTHO 4013. I have received report from Lin SHAIKH and had the opportunity to ask questions and assume patient care.
[2018-11-21 06:51] VITALS: BP 126/68
[2018-11-21 07:16] LABS: BASOPHILS % (AUTO) 0.4 % (0-1); EOSINOPHILS # (AUTO) 0.6 X10'3 (0-0.9); EOSINOPHILS % (AUTO) 8.1 % (0-6); HEMATOCRIT 27.2 % (35.0-45.0); LYMPHOCYTES % (AUTO) 26.6 % (21-51); MEAN CORPUSCULAR HEMOGLOBIN 27.9 PG (27.0-31.0); MEAN CORPUSCULAR HGB CONC 33.1 g/dL (33.0-36.5); MEAN CORPUSCULAR VOLUME 84.1 FL (78-98); MEAN PLATELET VOLUME 8.6 FL (7.4-10.4); MONOCYTES # (AUTO) 0.7 X10'3 (0-0.9); MONOCYTES % (AUTO) 9.2 % (2-12); NEUTROPHILS # (AUTO) 4.2 X10'3 (1.8-7.7); NEUTROPHILS % (AUTO) 55.7 % (42-75); PLATELET COUNT 170 X10'3 (140-440); RED BLOOD COUNT 3.24 X10'6 (4.20-5.60); WHITE BLOOD COUNT 7.5 X10'3 (4.5-11.0)
[2018-11-21] MEDS: aspirin 325mg tablet PO SCH (07:43)
[2018-11-21] MEDS: sennosides 8.6mg tablet PO SCH ×2 (07:43→20:26)
[2018-11-21] MEDS: clonazePAM 0.5mg tablet PO SCH ×2 (07:43→20:27)
[2018-11-21] MEDS: magnesium oxide 400mg tablet PO SCH ×2 (07:43→20:26)
[2018-11-21] MEDS: duloxetine 30mg CAPSULE.DR PO SCH (07:43)
[2018-11-21] MEDS: vitamin B comp w/Vit. C tab 1 TAB TABLET PO SCH (07:43)
[2018-11-21 09:59] VITALS: BP 126/65
[2018-11-21] MEDS ORDERED: acetaminophen 325mg tablet PO PRN (14:25)
--- NOTE | 2018-11-21 15:57 | NUR ---
I have reviewed and agree with all interventions, assessments performed and documented by Wagner SHAIKH
[2018-11-21 18:00] VITALS: BP 141/72
--- NOTE | 2018-11-21 18:15 | NUR ---
Patient in room ORTHO 4013. I have received report from Theodora SHAIKH and had the opportunity to ask questions and assume patient care.
--- NOTE | 2018-11-21 18:26 | NUR ---
Problems reprioritized. Patient report given, questions answered & plan of care reviewed with Manpreet SHAIKH.
[2018-11-21] MEDS: traZODone 50mg tablet PO SCH (20:26)
[2018-11-21] MEDS: prazosin 1mg capsule PO SCH (20:27)
[2018-11-21 22:00] VITALS: BP 103/55
[2018-11-22] MEDS: HYDROmorphone 1 mg/ml syringe IV PRN (05:49)
[2018-11-22 06:00] VITALS: BP 120/65
--- NOTE | 2018-11-22 06:05 | NUR ---
Problems reprioritized. Patient report given, questions answered & plan of care reviewed with Ivory SHAIKH.
--- NOTE | 2018-11-22 06:30 | NUR ---
Patient in room ORTHO 4013. I have received report from [facility] Case and had the opportunity to ask questions and assume patient care.
[2018-11-22 07:08] LABS: BASOPHILS # (AUTO) 0.1 X10'3 (0-0.2); BASOPHILS % (AUTO) 0.7 % (0-1); EOSINOPHILS # (AUTO) 0.6 X10'3 (0-0.9); EOSINOPHILS % (AUTO) 7.1 % (0-6); HEMATOCRIT 27.6 % (35.0-45.0); HEMOGLOBIN 9.4 g/dl (12.0-16.0); LYMPHOCYTES # (AUTO) 1.5 X10'3 (1.1-4.8); LYMPHOCYTES % (AUTO) 17.8 % (21-51); MEAN CORPUSCULAR HEMOGLOBIN 27.7 PG (27.0-31.0); MEAN CORPUSCULAR HGB CONC 33.9 g/dL (33.0-36.5); MEAN CORPUSCULAR VOLUME 81.8 FL (78-98); MEAN PLATELET VOLUME 8.5 FL (7.4-10.4); MONOCYTES # (AUTO) 0.7 X10'3 (0-0.9); MONOCYTES % (AUTO) 8.4 % (2-12); NEUTROPHILS # (AUTO) 5.5 X10'3 (1.8-7.7); PLATELET COUNT 192 X10'3 (140-440); RED BLOOD COUNT 3.38 X10'6 (4.20-5.60); RED CELL DISTRIBUTION WIDTH 15.9 % (11.5-14.5); WHITE BLOOD COUNT 8.3 X10'3 (4.5-11.0)
[2018-11-22] MEDS: clonazePAM 0.5mg tablet PO SCH ×2 (08:32→20:47)
[2018-11-22] MEDS: duloxetine 30mg CAPSULE.DR PO SCH (08:32)
[2018-11-22] MEDS: sennosides 8.6mg tablet PO SCH ×2 (08:33→20:46)
[2018-11-22] MEDS: magnesium oxide 400mg tablet PO SCH ×2 (08:33→20:46)
[2018-11-22] MEDS: gabapentin 300mg capsule PO SCH ×2 (08:33→16:49)
[2018-11-22] MEDS: aspirin 325mg tablet PO SCH (08:34)
[2018-11-22] MEDS: vitamin B comp w/Vit. C tab 1 TAB TABLET PO SCH (08:34)
[2018-11-22] MEDS: oxyCODONE IR 5mg (immed. release) tablet PO PRN ×4 (08:35→20:47)
[2018-11-22 10:00] VITALS: BP 116/65
--- NOTE | 2018-11-22 15:12 | NUR ---
Joint consult: Pt s/p R TKA infection surgery. RD provided pt w/ written/verbal high protein ed, RD contact information, and upon pt request high vitamin D content foods list. Pt agrees to strawberry uzbek yogurt x2 tonight and one w/ breakfast; dietary notified. Addendum: 11/22/18 at [address] Amended: Links added.
[2018-11-22 18:00] VITALS: BP 98/51
--- NOTE | 2018-11-22 18:30 | NUR ---
Problems reprioritized. Patient report given, questions answered & plan of care reviewed with [facility] Arnett.
[2018-11-22] MEDS: prazosin 1mg capsule PO SCH (20:46)
[2018-11-22] MEDS: traZODone 50mg tablet PO SCH (20:47)
[2018-11-22 20:53] VITALS: BP 121/68
[2018-11-23] MEDS: gabapentin 300mg capsule PO SCH ×2 (00:49→08:58)
[2018-11-23] MEDS: oxyCODONE IR 5mg (immed. release) tablet PO PRN ×4 (00:51→15:05)
--- NOTE | 2018-11-23 06:14 | NUR ---
Report given to Ivory SHAIKH.
[2018-11-23 07:56] VITALS: BP 109/62
[2018-11-23] MEDS: clonazePAM 0.5mg tablet PO SCH (08:57)
[2018-11-23] MEDS: duloxetine 30mg CAPSULE.DR PO SCH (08:57)
[2018-11-23] MEDS: magnesium oxide 400mg tablet PO SCH (08:58)
[2018-11-23] MEDS: vitamin B comp w/Vit. C tab 1 TAB TABLET PO SCH (08:58)
[2018-11-23] MEDS: sennosides 8.6mg tablet PO SCH (08:58)
[2018-11-23] MEDS: aspirin 325mg tablet PO SCH (08:59)
== END 2018-11-23 15:30 | DRG 467 ==
LOC: EDSTATUS 07:30 → PAS IN 08:15 → EDSTATUS 11:45 → ORTHO 4S 15:40
PROVIDERS: ADMIT Orthopaedic Surgery; ATTEND Orthopaedic Surgery
PROC: 0SRC0J9 Replacement of Right Knee Joint with Synthetic Substitute, Cemented, Open Approach (ICD-10-PCS; 2018-11-19)
PROC: 3E0T3BZ Introduction of Anesthetic Agent into Peripheral Nerves and Plexi, Percutaneous Approach (ICD-10-PCS; 2018-11-19)
PROC: 0SPC0JZ Removal of Synthetic Substitute from Right Knee Joint, Open Approach (ICD-10-PCS; principal; 2018-11-19 11:10)
DX: T84.53XA Infection and inflammatory reaction due to internal right knee prosthesis, initial encounter (principal); D62 Acute posthemorrhagic anemia; F32.9 Major depressive disorder, single episode, unspecified; G89.29 Other chronic pain; M81.0 Age-related osteoporosis without current pathological fracture; Z96.652 Presence of left artificial knee joint; Z96.612 Presence of left artificial shoulder joint; Z96.611 Presence of right artificial shoulder joint; G62.9 Polyneuropathy, unspecified; Y83.1 Surgical operation with implant of artificial internal device as the cause of abnormal reaction of the patient, or of later complication, without mention of misadventure at the time of the procedure; I25.10 Atherosclerotic heart disease of native coronary artery without angina pectoris; K21.9 Gastro-esophageal reflux disease without esophagitis; Z85.43 Personal history of malignant neoplasm of ovary; Z90.710 Acquired absence of both cervix and uterus; Z88.8 Allergy status to other drugs, medicaments and biological substances; Z88.1 Allergy status to other antibiotic agents; Z95.0 Presence of cardiac pacemaker; Z90.11 Acquired absence of right breast and nipple; Y92.89 Other specified places as the place of occurrence of the external cause; Z79.899 Other long term (current) drug therapy
CPT/HCPCS: 36415; 80051; 80053; 82948; 85025; 85027; 87070; 87075; 87077; 87081; 87102; 87186; 89051; 97110; 97116; 97530; A4215; A6454; A7000; A9272; C1713; C1758; C1776; G0378; J0131; J0690; J1100; J1170; J1885; J2001; J2175; J2250; J2270; J2405; J2704; J2710; J2795; J3010; J3370; J3480; J3490; J7120

== ENCOUNTER 2019-07-31 13:47 | Emergency (ER) | payer MEDICARE, MEDICAID ==
[~2019-07-31] VITALS: Ht 157.5 cm; Wt 72.3 kg
[~2019-07-31 13:47] MED LIST changes: -SENN-162 PO; +SENN-263 PO
[2019-07-31] MEDS ORDERED: naproxen 500mg tablet PO ONE (14:25)
--- NOTE | 2019-07-31 14:36 | NUR ---
called [facility] to get case number. case # [id number]
[2019-07-31 15:26] VITALS: BP 105/85
== END 2019-07-31 15:27 | disposition home or self-care (01) ==
LOC: ER 13:47
DX: S16.1XXA Strain of muscle, fascia and tendon at neck level, initial encounter (principal); M25.511 Pain in right shoulder; G89.29 Other chronic pain; F32.9 Major depressive disorder, single episode, unspecified; Z85.3 Personal history of malignant neoplasm of breast; Z98.890 Other specified postprocedural states; Z59.0 Homelessness; Z88.6 Allergy status to analgesic agent; Z88.1 Allergy status to other antibiotic agents; Z88.8 Allergy status to other drugs, medicaments and biological substances; Z79.899 Other long term (current) drug therapy; W18.39XA Other fall on same level, initial encounter; Y93.89 Activity, other specified; Y92.009 Unspecified place in unspecified non-institutional (private) residence as the place of occurrence of the external cause; Y99.8 Other external cause status
CPT/HCPCS: 70450; 72125; 73030; 99285

== ENCOUNTER 2019-09-17 15:27 | Emergency (ER) | payer MEDICARE, MEDICAID ==
[~2019-09-17] VITALS: Ht 157.5 cm; Wt 72.7 kg
[2019-09-17 15:40] VITALS: BP 116/67
== END 2019-09-17 19:30 | disposition home or self-care (01) ==
LOC: ER 15:27
DX: M79.5 Residual foreign body in soft tissue (principal); G89.29 Other chronic pain; F32.9 Major depressive disorder, single episode, unspecified; Z87.442 Personal history of urinary calculi; Z85.3 Personal history of malignant neoplasm of breast; Z98.890 Other specified postprocedural states; Z72.89 Other problems related to lifestyle; Z59.0 Homelessness; Z88.8 Allergy status to other drugs, medicaments and biological substances; Z88.6 Allergy status to analgesic agent; Z88.1 Allergy status to other antibiotic agents; Z79.899 Other long term (current) drug therapy
CPT/HCPCS: 99284